=== PATIENT | female | born 1965 | race Caucasian/White ===

== ENCOUNTER → 2016-08-27 | Outpatient (CLI) | payer OTHER ==
[2014-07-26 09:20] VITALS: BP 103/63
[~2016-08-27] MED LIST: ACET500T33 PO; ALPR0.25 PO; AZIT250T PO; BUPR100T6 PO; BUPR150T8 PO; CALC-147 PO; CALC500T50 PO; CYAN10005 PO; HYDR-971 PO; HYDR25SU18 RC; IBUP-1060 PO; IOHEXOL 240 MG/ML 50ML VIAL. PO ONE; IOHEXOL 300 MG/ML 100ML VIAL. IV ONE; LACT1CAP6 PO; MULT-18 PO; OMEP20CA5 PO; OMEP20CA9 PO; OXYC5TAB PO; POLY119P4 PO; POLY17PO5 PO; RANI300T3 PO; VIT52OIL3 TP
--- NOTE | 2016-08-27 14:45 | KCIC ---
PROCEDURE CT abdomen pelvis with and without contrast. HISTORY History of rectal cancer, bowel changes. Cramping pain. TECHNIQUE Helical CT imaging of the abdomen and pelvis is performed after oral contrast and before and after 89 cc Omnipaque 300 IV contrast. PQRS: One or more the following individualized dose reduction techniques were utilized for the study: 1. Automated exposure control. 2. Adjustment of the mA and/or kV according to patient size. 3. Use of iterative reconstruction technique. COMPARISON CT chest abdomen pelvis with contrast, January 20, 2016. FINDINGS Lung bases are clear. Cardiac size normal. Small hypodensity in segment 3 of the liver is stable and may be a cyst or hemangioma. Tiny hypodensity in segment 4B is slightly larger although this may be due to slice acquisition. Tiny hypodensity in segment 5 adjacent to the gallbladder is stable. Liver otherwise homogeneous. The spleen, gallbladder, pancreas, adrenal glands, abdominal aorta, and kidneys are normal. Stomach unremarkable. No dilated small bowel. No colon wall thickening is seen. The appendix diameter is prominent but similar to prior study. There is no surrounding inflammation. No abdominal adenopathy or free fluid. Urinary bladder is normal. Uterus unremarkable. Prominent left periuterine vessels are similar. No pelvic free fluid. No acute bone abnormality. IMPRESSION No acute abdominal or pelvic abnormality. Electronically signed by: Tr Maxwell MD (Aug 27, 2016 14:43:59)
== END | disposition home or self-care (01) ==
LOC: KCIC CT 12:54
PROVIDERS: ATTEND Nurse Practitioner Primary Care
DX: R19.4 Change in bowel habit (principal); Z85.048 Personal history of other malignant neoplasm of rectum, rectosigmoid junction, and anus
CPT/HCPCS: 74178; Q9966; Q9967

== ENCOUNTER → 2018-05-09 | Outpatient (CLI) | payer OTHER ==
[2014-07-26 09:20] VITALS: BP 103/63
[~2018-05-09] MED LIST changes: -CALC500T50 PO; +CALC500T54 PO; +CONTRAST GIVEN. MC PRN; +HYDR-3164 PO; -HYDR-971 PO; -OXYC5TAB PO; +OXYC5TAB4 PO; +POLY17PO29 PO; -POLY17PO5 PO
--- NOTE | 2018-05-09 16:53 | RAD ---
CT CHEST ABD PELVIS W/CONTRAST Indication: Squamous cell cancer Technique: Postcontrast CT imaging was performed of the chest, abdomen, pelvis, multiplanar reconstruction images submitted. One or more of the following individualized dose reduction techniques were utilized for this examination: 1. Automated exposure control 2. Adjustment of the mA and/or kV according to patient size 3. Use of iterative reconstruction technique. Comparison: January 20, 2016 chest abdomen pelvis and August 27, 2016 exam of the abdomen and pelvis CHEST: Findings: Thoracic aortic caliber is stable, no dissection flap. There are bilateral breast implants. There is no pericardial or pleural fluid, pneumothorax, infiltrate, suspicious pulmonary nodularity. There is no new significant lymphadenopathy of the chest. No new suspicious bone lesion is identified. There is mild centrilobular emphysema, upper zone predominance. IMPRESSION: 1. No new abnormality is identified of the chest. Abdomen pelvis: FINDINGS: There is stable tiny hypodense lesion of the left lobe of the liver laterally about 0.4 cm. Another small hypodense lesion of the left lobe of the liver axial image 28 series 4 at 0.4 cm in greatest size is somewhat larger as previously 0.2 cm on the 2016 exam, otherwise difficult to characterize given small size. No new liver lesion is identified. Both kidneys enhance, no hydronephrosis. There is no adrenal nodularity. There is no new abnormality of the pancreas or spleen. Appearance of gastric wall thickening may be accentuated by incomplete distention during exam. Bowel is not significantly dilated. There is no free air or free fluid. There is no new significant lymphadenopathy. No new suspicious bone lesion is identified. IMPRESSION: 1. There are 2 small hypodense foci of the liver too small to accurately characterize, one of which is larger than 2016 exam up to 0.4 cm. No new liver lesion or lymphadenopathy is identified. Electronically signed by: Hemal Malone MD (05/09/2018 4:49 PM) [email or web address]
== END | disposition home or self-care (01) ==
LOC: CT 13:14
PROVIDERS: ATTEND Radiology Radiation Oncology
DX: J43.2 Centrilobular emphysema (principal); K76.89 Other specified diseases of liver; Z85.828 Personal history of other malignant neoplasm of skin
CPT/HCPCS: 71260; 74177; Q9966; Q9967

== ENCOUNTER → 2018-05-23 | Outpatient (CLI) | payer OTHER ==
[2014-07-26 09:20] VITALS: BP 103/63
[~2018-05-23] MED LIST changes: -CONTRAST GIVEN. MC PRN; +GADOBUTROL 7.5 MMOL/7.5 ML VIAL IV ONE; -IOHEXOL 240 MG/ML 50ML VIAL. PO ONE; -IOHEXOL 300 MG/ML 100ML VIAL. IV ONE
--- NOTE | 2018-05-23 13:03 | RAD ---
MRI abdomen without with contrast 05/23/2018 Clinical indications: Liver lesions, history of anorectal carcinoma. COMPARISON: CT abdomen and pelvis 05/09/2018, 01/20/2016, 02/14/2015, 04/03/2014. TECHNIQUE: Multisequence, multiplanar MR imaging of the abdomen was obtained without and following the intravenous administration of 6 mL Gadavist gadolinium-based contrast material. FINDINGS: Lower thorax: Partial visualization of bilateral breast implants. Heart size is normal. Liver: There is a T2 hyperintense cyst measuring 0.7 cm in hepatic segment 3 series 6/image 17. There is a T2 hyperintense cyst measuring 0.6 cm in hepatic segment IVb series 6/image 21. Tiny, T2 hyperintense cyst in hepatic segment IVb series 4/image 23 measuring 0.4 cm. 0.2 cm benign cyst in hepatic segment 2 series 4/image 12. No suspicious enhancing liver lesion. Biliary system: Gallbladder normal in size. No intra-axial hepatic biliary ductal dilatation. Spleen: Unremarkable. Adrenal glands and kidneys: Unremarkable. Pancreas: Unremarkable. Abdominal aorta and major vessels: Abdominal aorta normal in caliber. Major portal veins patent. Lymph nodes: No abdominal lymphadenopathy. Bowel and peritoneum: Visualized small and large bowel loops are normal in caliber. IMPRESSION: 1. Multiple subcentimeter benign hepatic cysts. 2. No hepatic metastatic disease. Electronically signed by: Logan Mejia MD (05/23/2018 12:59 PM) [id number]
== END | disposition home or self-care (01) ==
LOC: MRI 10:31
PROVIDERS: ATTEND Internal Medicine Hematology & Oncology
DX: K76.89 Other specified diseases of liver (principal); Z85.048 Personal history of other malignant neoplasm of rectum, rectosigmoid junction, and anus
CPT/HCPCS: 74183

== ENCOUNTER → 2018-12-29 | Outpatient (CLI) | payer OTHER ==
[2014-07-26 09:20] VITALS: BP 103/63
[~2018-12-29] MED LIST changes: +CONTRAST GIVEN. MC PRN; +CYAN-25 PO; -CYAN10005 PO; -GADOBUTROL 7.5 MMOL/7.5 ML VIAL IV ONE; +IOHEXOL 240 MG/ML 50ML VIAL. PO ONE; +IOHEXOL 300 MG/ML 100ML VIAL. IV ONE; +OMEP20CA10 PO; -OMEP20CA9 PO
--- NOTE | 2018-12-29 11:24 | RAD ---
EXAM: CT Chest, Abdomen and Pelvis with IV contrast CLINICAL HISTORY: Rectal cancer, follow-up COMPARISON: MRI abdomen 05/23/2018, CT 05/09/2018 TECHNIQUE: Helical CT of the chest, abdomen and pelvis was performed following the administration of intravenous contrast. Axial, coronal and sagittal reformatted images were generated. ---PQRS compliance statement - One or more of the following individualized dose reduction techniques were utilized for this study: 1. Automated exposure control 2. Adjustment of the mA and/or kV according to patient size 3. Use of iterative reconstruction technique--- FINDINGS: Chest: No lobar consolidation. No suspicious lung nodule or mass. Central airways are grossly patent. Mild emphysematous changes are seen. No axillary lymphadenopathy. No mediastinal or hilar lymphadenopathy. No pleural effusion or pneumothorax. Heart is not enlarged. No pericardial effusion. Bilateral breast implants are seen. Abdomen and Pelvis: Hepatic hypodense lesions were previously described as cysts. No definite new hepatic lesion is seen. Gallbladder is normal. No biliary ductal dilatation. Pancreas is unremarkable. Spleen is normal in appearance. Adrenal glands are normal. Symmetric nephrograms. No focal renal lesion. No hydronephrosis. No hydroureter. Bladder is unremarkable. Moderate to large volume colonic stool content is seen. No small or large bowel dilatation. No evidence for bowel obstruction. No abdominal or pelvic lymphadenopathy. No abdominal or pelvic ascites. Aorta is normal in caliber. Bones: Osseous structures are grossly stable IMPRESSION: No thoracic, abdominal or pelvic lymphadenopathy. No definite focus of recurrent malignancy or metastasis are convincingly identified. Electronically signed by: Agustin Perera MD (12/29/2018 11:21 AM) [id number]
== END | disposition home or self-care (01) ==
LOC: CT 08:43
PROVIDERS: ATTEND Internal Medicine Hematology & Oncology
DX: C21.0 Malignant neoplasm of anus, unspecified (principal); J43.9 Emphysema, unspecified; K76.89 Other specified diseases of liver; Z88.5 Allergy status to narcotic agent; Z92.21 Personal history of antineoplastic chemotherapy
CPT/HCPCS: 71260; 74177; Q9966; Q9967